=== PATIENT | male | born 1940 | race Native Hawaiian/Other Pacific Islander ===

== ENCOUNTER 2018-05-14 07:54 | Day surgery (SDC) | payer MEDICARE, OTHER ==
[2018-05-06 08:23] VITALS: BMI 23.8
[2018-05-14 08:27] VITALS: O2SAT 99
[2018-05-14] MEDS ORDERED: Propofol 10 mg/ml Inj (20 ML) ONE (09:44)
[2018-05-14] MEDS ORDERED: Lidocaine 2% Inj (20ml) ONE (09:45)
[2018-05-14] MEDS ORDERED: Sodium Chloride 0.9% 1,000 ML IV SCH (10:30)
[2018-05-14 11:20] VITALS: BP 148/60; PULSE 44; RESP 16; TEMP 97.6
--- NOTE | 2018-05-14 22:53 | CARD ---
APPROVED REPORT EKG Measurement Heart [id number] 186P4 [id number] <Conclusion> Marked sinus bradycardia Cannot rule out Anterior infarct, age undetermined Abnormal ECG
== END 2018-05-14 12:03 | disposition home or self-care (01) ==
LOC: ENDO 07:54
PROVIDERS: ATTEND Internal Medicine Gastroenterology
DX: K59.00 Constipation, unspecified (principal); D12.2 Benign neoplasm of ascending colon; K57.30 Diverticulosis of large intestine without perforation or abscess without bleeding; K63.5 Polyp of colon; K64.8 Other hemorrhoids; K64.4 Residual hemorrhoidal skin tags; I25.10 Atherosclerotic heart disease of native coronary artery without angina pectoris; E78.5 Hyperlipidemia, unspecified
CPT/HCPCS: 45380; 88305; 93005; J2704; J7030; J7040

== ENCOUNTER 2019-02-12 12:25 | Outpatient (CLI) | payer MEDICARE, OTHER | END 2019-02-12 12:26 | disposition home or self-care (01) | LOC: LAB 12:25 ==